=== PATIENT | female | born 1980 | race Caucasian/White ===

== ENCOUNTER 2024-11-22 18:45 | Emergency (ER) | payer BC ==
[2024-11-22] MEDS: Bacitracin Oint 1 GM U/D Packet TOP ONE (20:30)
[2024-11-22] MEDS: Diphtheria,Pertussis(Acell),Tetanus Vaccine 0.5 ML Syringe IM ONE (20:30)
== END 2024-11-22 20:50 | disposition home or self-care (01) ==
LOC: JP.ED 18:45
DX: S60.454A Superficial foreign body of right ring finger, initial encounter (principal); E03.9 Hypothyroidism, unspecified; Z79.890 Hormone replacement therapy; Z23 Encounter for immunization; W45.8XXA Other foreign body or object entering through skin, initial encounter; Y93.89 Activity, other specified
CPT/HCPCS: 90471; 90715; 99283; J2003